=== PATIENT | female | born 1955 | race Hispanic/Latino ===

== ENCOUNTER 2018-02-20 16:35 | Emergency (ER) | payer SELFPAY ==
[2018-02-20 16:52] VITALS: TEMP 98.7
[2018-02-20 18:42] LABS: SQUAMOUS EPITHIAL < 1 /hpf (0-5); URINE BILIRUBIN NEGATIVE (NEGATIVE); URINE BLOOD NEGATIVE (NEGATIVE); URINE CLARITY CLEAR (Clear); URINE COLOR COLORLESS (YELLOW); URINE GLUCOSE (UA) NEG (Normal); URINE LEUKOCYTE ESTERASE SMALL Leu/uL (Negative); URINE PROTEIN NEGATIVE (NEGATIVE); URINE UROBILINOGEN 0.2-1.0 mg/dL (0.2-1.0)
[2018-02-20 18:49] LABS: VENOUS BLOOD GAS BASE EXCESS 2.5 mmol/L (0.0-2.0); VENOUS BLOOD GAS PCO2 48 mmHg (40-60); VENOUS BLOOD GAS PO2 19 mm/Hg (30-55); VENOUS BLOOD PH 7.38 (7.32-7.43)
[2018-02-20 19:03] LABS: BASO % 0.3 % (0.0-2.0); EOS # 0.2 K/uL (0.0-0.7); HEMOGLOBIN 11.7 g/dL (12.0-16.0); LYMPH # 2.2 K/uL (1.0-4.3); LYMPH % 23.8 % (20.0-40.0); MEAN CELL VOLUME 93.7 fl (81.0-99.0); MEAN CORPUSCULAR HEMOGLOBIN 31.8 pg (27.0-31.0); MEAN CORPUSCULAR HGB CONC 33.9 g/dL (33.0-37.0); MEAN PLATELET VOLUME 8.9 fl (7.2-11.7); MONO # 0.8 K/uL (0.0-0.8); NEUT % 64.9 % (50.0-75.0); RBC 3.68 Mil/uL (3.80-5.20); RED CELL DISTRIBUTION WIDTH 13.3 % (11.5-14.5); WHITE BLOOD COUNT 9.2 K/uL (4.8-10.8)
[2018-02-20 19:13] LABS: ALB/GLOB RATIO 1.2 (1.0-2.1); ALBUMIN 4.1 g/dL (3.5-5.0); ALT/SGPT 32 U/L (9-52); AST/SGOT 44 U/L (14-36); BLOOD UREA NITROGEN 11 mg/dl (7-17); CALCIUM 9.4 mg/dL (8.4-10.2); GFR AFRICAN-AMERICAN > 60; GFR NON-AFRICAN AMERICAN > 60
[2018-02-20 19:14] LABS: INR 1.1 (0.9-1.2)
[2018-02-20 19:15] LABS: PARTIAL THROMBOPLASTIN TIME 32.7 Seconds (25.6-37.1)
--- NOTE | 2018-02-20 19:17 | ED PDOC ---
HPI: General Adult Time Seen by Provider: 02/20/18 17:59 Chief Complaint (Nursing): Back Pain History Per: Patient, Family (daughter) Additional Complaint(s): Pt states for over 1 month she's had a persistent non-productive cough. States she was initially treated with a Z-pack which provided no relief and she was then prescribed a 10 day course of abx (does not remember name) along with steroids still without relief. Also states for the past 3 weeks pt. has been c/ o atraumatic b/l upper back pain which at times radiates to her b/l lower chest area. As per daughter today pt. developed chills and an axillary temperature of 101.8 for which she took advil and then came here. Denies dysuria, hematuria, palpitations, hemoptysis, hx of DVT or PE, chest pain, abdominal pain, N/V/D, recent travel, leg pain. Of note, Past Medical History Reviewed: Historical Data, Nursing Documentation, Vital Signs Vital Signs: Last Vital Signs Temp 98.7 F 02/20/18 16:44 Pulse 82 02/20/18 19:52 Resp 20 02/20/18 19:52 BP 121/72 02/20/18 19:52 Pulse Ox 98 02/20/18 19:52 - Family History Family History: States: No Known Family Hx - Allergies Allergies/Adverse Reactions: Allergies Allergy/AdvReac Type Severity Reaction Status Date / Time No Known Allergies Allergy Verified 02/20/18 16:44 Review of Systems ROS Statement: Except As Marked, All Systems Reviewed And Found Negative Constitutional: Positive for: Fever Respiratory: Positive for: Cough Musculoskeletal: Positive for: Back Pain Physical Exam - Physical Exam Appears: Positive for: Well, Non-toxic, No Acute Distress Skin: Positive for: Normal Color, Warm. Negative for: Rash Eye Exam: Positive for: Normal appearance ENT: Positive for: Normal ENT Inspection Neck: Positive for: Normal, Painless ROM Cardiovascular/Chest: Positive for: Regular Rate, Rhythm. Negative for: Tachycardia Respiratory: Positive for: Normal Breath Sounds. Negative for: Respiratory Distress Gastrointestinal/Abdominal: Positive for: Normal Exam, Soft. Negative for: Tenderness Back: Positive for: Normal Inspection Neurologic/Psych: Positive for: Alert, Oriented (x3). Negative for: Aphasia, Facial Droop - Laboratory Results Result Diagrams: 02/20/18 19:00 07/30/18 16:00 - ECG ECG: Positive for: Interpreted By Me ECG Rhythm: Positive for: Sinus Rhythm. Negative for: ST/T Changes Rate: 86 O2 Sat by Pulse Oximetry: 99 - Progress ED Course And Treament: Labs, EKG, CXR, VBG ordered. 1918 D-Dimer elevated. UA - small leuks, no nitrates CT abd/pelvis w/o contrast ordered. CTA chest w/ IV contrast to r/o PE ordered. 1945 Pt. and daughter informed of results agree to CTA chest w/ IV contrast but refused CT abd/pelvis w/o contrast. Disposition - Clinical Impression Clinical Impression: Fever, Back pain, Cough - Patient ED Disposition Is Patient to be Admitted: Transfer of Care (Signed out to Ghanshyam MARTINEZ pending CTA chest) - Disposition Disposition: Routine/Home Disposition Time: 20:02 Condition: STABLE Forms: [employer] (Uzbek)
[2018-02-20] MEDS ORDERED: Iodixanol 320 MG/ML 100 ML BOTTLE IV ONE (20:00)
[2018-02-20] MEDS ORDERED: Sodium Chloride 0.9% 50 ML IV ONE (20:00)
--- NOTE | 2018-02-20 20:52 | ED PDOC ---
- Laboratory Results Result Diagrams: 02/20/18 19:00 02/20/18 16:00 - ECG O2 Sat by Pulse Oximetry: 99 - Progress ED Course And Treament: Case endorsed to race and sports book writer from Janice MARTINEZ pending CT, re-eval EXAM: CT Angiography Chest With Intravenous Contrast EXAM DATE/TIME: 02/20/2018 7:20 PM CLINICAL HISTORY: 63 years old, female; Signs and symptoms; Cough; Additional info: Cough, upper back pain, elevated d-dimer TECHNIQUE: Axial computed tomographic angiography images of the chest with intravenous contrast using CT angiography protocol. All CT scans at this facility use at least one of these dose optimization techniques: automated exposure control; mA and/or kV adjustment per patient size (includes targeted exams where dose is matched to clinical indication); or iterative reconstruction. Coronal and sagittal reformatted images were created and reviewed. MIP reconstructed images were created and reviewed. CONTRAST: 95 ml of visi-320 administered intravenously. COMPARISON: No relevant prior studies available. FINDINGS: Pulmonary arteries: No visible acute pulmonary embolism. Aorta: Normal. No aortic aneurysm. No aortic dissection. Lungs: There is biapical pleural and parenchymal scarring. There is bibasilar and bilateral dependent atelectatic change or scarring. Cannot exclude a component of pneumonitis at the lung bases . Pleural space: Normal. No pneumothorax. No pleural effusion. Heart: Normal. No cardiomegaly. No pericardial effusion. Bones/joints: Unremarkable. No acute fracture. Soft tissues: Unremarkable. Lymph nodes: Unremarkable. No enlarged lymph nodes. IMPRESSION: 1. There is bibasilar and bilateral dependent atelectatic change or scarring. Cannot exclude a component of pneumonitis at the lung bases. 2. No visible acute pulmonary embolism. Case discussed with ED attending Dr. Nava; will admit for IV antibiotics secondary to failed outpatient treatment Patient educated on plan; does not wish to be admitted Patient advised she will need to sign out against medical advice, and risks of doing so. Patient AAOx3, demonstrates full competency in making medical decisions and still wishes to sign out against medical advice after risks/benefits explained. Patient speaks Kyrgyz, states she understands; son also at bedside translating for patient in Kittitian as precaution. Patient comfortable with son translating Rx Levaquin, Prednisone, Albuterol neb solution provided Advised follow up H Return precautions given Disposition - Clinical Impression Clinical Impression: Pneumonitis, Left against medical advice - POA Present On Arrival: None - Disposition Referrals: [facility] [Outside] Disposition: AGAINST MEDICAL ADVICE Disposition Time: 23:45 Condition: STABLE Prescriptions: Albuterol 0.083% [Albuterol Sulfate 3 Ml] 1 vial IH Q6 PRN #30 vial PRN Reason: Cough levoFLOXacin [Levaquin] 750 mg PO DAILY #4 tab Prednisone 50 mg PO DAILY #4 tablet Instructions: Cough in Adults, Fever, Adult (DC), Leaving Against Medical Advice Forms: [employer] (Kyrgyz) Against Medical Advice - AMA Patient Left Against Medical Advice: The patient declines admission to the hospital and wishes to leave the Emergency Department. This action is against my medical advice. This decision was made with informed refusal. The patient was told that admission to the hospital is necessary. Explanation of the reasons why were discussed. The risks of leaving were explained to the patient and include, but are not limited to, worsening of known or currently unknown conditions, permanent disability and from undiagnosed or untreated conditions. The patient has the capacity to make this informed decision and understands my explanation of the current medical problem and risks of leaving. The patient voluntarily accepts these risks and signed an AMA form documenting our conversation. The patient was given the opportunity to ask questions and reconsider. The patient was encouraged to return to the Emergency Department at any time for further care.
[2018-02-20] MEDS ORDERED: levoFLOXacin 750 mg in D5W 150 ML BAG IVPB STA (21:03)
[2018-02-20] MEDS ORDERED: levoFLOXacin 750 mg in D5W 750 MG/150 ML BAG IVPB ONE ×2 (21:15→21:50)
[2018-02-20] MEDS ORDERED: Albuterol-Ipratrop 3 mg / 0.5 (3 ml) UD IH STA (21:27)
[2018-02-20] MEDS ORDERED: Albuterol-Ipratrop 3 mg / 0.5 (3 ml) UD ONE ×2 (21:49→22:02)
[2018-02-20 22:10] VITALS: BP 124/75; RESP 16
[2018-02-20 23:48] VITALS: PULSE 90
[2018-02-20 23:52] VITALS: O2SAT 99
--- NOTE | 2018-02-21 09:15 | CARD ---
APPROVED REPORT Date of service: 02/20/2018 EKG Measurement Heart [id number] <Conclusion> Normal sinus rhythm Normal ECG
--- NOTE | 2018-02-21 11:03 | CT ---
Date of service: 02/20/2018 PROCEDURE: CT Chest with contrast (Pulmonary Angiogram) HISTORY: cough, upper back pain, elevated d-dimer COMPARISON: None available. TECHNIQUE: Axial computed tomography images were obtained of the chest in the pulmonary arterial phase of enhancement. Coronal and sagittal reformatted images were created and reviewed. Intravenous contrast dose: 95 mL Visipaque 320 Radiation dose: Total exam DLP = 191.10 mGy-cm. This CT exam was performed using one or more of the following dose reduction techniques: Automated exposure control, adjustment of the mA and/or kV according to patient size, and/or use of iterative reconstruction technique. FINDINGS: PULMONARY ARTERIES: No filling defects in the pulmonary arteries to suggest pulmonary embolism. AORTA: No acute findings. No thoracic aortic aneurysm. LUNGS: The lungs are well inflated. There is biapical pleural thickening. There is confluent airspace disease in the medial segment of the right middle lobe. There is subsegmental atelectasis in the inferior lingula and both lower lobes. PLEURAL SPACES: No effusion or pneumothorax. HEART: No cardiomegaly. No significant pericardial effusion. LYMPH NODES: No lymphadenopathy. BONES, CHEST WALL: Within normal limits for the patient's age. No fracture or destructive lesion OTHER FINDINGS: Unremarkable. IMPRESSION: No CTA evidence for acute pulmonary embolism. Confluent airspace disease in the medial segment of the right middle lobe could represent pneumonia. Follow-up after medical management is recommended to ensure complete resolution. A preliminary report was provided by [employer] services.
== END 2018-02-20 23:48 | disposition left against medical advice (07) ==
LOC: H.ER 16:35
DX: R50.9 Fever, unspecified (principal); M54.9 Dorsalgia, unspecified; R05 Cough; J18.9 Pneumonia, unspecified organism
CPT/HCPCS: 71046; 71275; 80053; 81003; 82803; 84484; 85025; 85378; 85610; 85730; 87040; 87070; 87086; 87430; 87804; 93005; 94150; 94640; 96365; 96375; 99285; J2930; Q9967